=== PATIENT | female | born 1955 | race Caucasian/White ===

== ENCOUNTER 2024-07-11 00:34 | Emergency (ER) | payer MEDICARE, MEDICAID ==
[~2024-07-11] VITALS: Ht 157.5 cm; Wt 63.0 kg
[2024-07-11 00:41] VITALS: TEMP 98.2
[2024-07-11] MEDS: LIDOCAINE VISC 2% SOLN 15 ML UDC PO ONE (00:51)
[2024-07-11] MEDS: METOCLOPRAMIDE HCL 10 MG/2ML VIAL IV ONE (00:51)
[2024-07-11] MEDS: KETOROLAC TROMETHAMINE 30 MG/ML VIAL IV STA (00:52)
[2024-07-11] MEDS: DIPHENHYDRAMINE HCL 25 MG CAP PO ONE (00:52)
[2024-07-11] MEDS: SODIUM CHLORIDE 0.9% 1000ML 1,000 ML IV SCH (00:52)
[2024-07-11] MEDS ORDERED: ONDANSETRON HCL INJ 2MG/ML 2ML 2 MG/ML VIAL ONE (00:56)
[2024-07-11] MEDS: ONDANSETRON HCL INJ 2MG/ML 2ML 2 MG/ML VIAL IV STA (00:58)
[2024-07-11 01:34] LABS: BASOPHILS # (AUTO) 0.1 (0.0-0.1); BASOPHILS % 0.7 % (0.0-1.0); EOSINOPHILS # (AUTO) 0.2 (0.0-0.4); EOSINOPHILS % 1.9 % (0.0-6.0); HEMATOCRIT 39.5 % (34.2-44.1); HEMOGLOBIN 12.4 g/dL (12.0-16.0); MEAN CORPUSCULAR HEMOGLOBIN 29.9 pg (28-32); MEAN CORPUSCULAR HGB CONC 31.4 g/dL (31-35); MEAN CORPUSCULAR VOLUME 95.2 fL (81-99); MONOCYTES # (AUTO) 0.9 (0.2-0.8); MONOCYTES % 9.3 % (4.4-11.3); NEUTROPHILS # (AUTO) 5.8 (2.1-6.9); NEUTROPHILS % 57.7 % (38.7-80.0); PLATELET COUNT 225 x10e3/uL (140-360); RED BLOOD COUNT 4.15 x10e6/uL (3.6-5.1); RED CELL DISTRIBUTION WIDTH 13.7 % (11.7-14.4); WHITE BLOOD COUNT 10.05 x10e3/uL (4.8-10.8)
[2024-07-11 01:48] LABS: INR 0.87; PROTHROMBIN TIME 12.4 seconds (11.9-14.5)
[2024-07-11] MEDS: ETOMIDATE 2 MG/ML 10 ML INJ IV STA (01:49)
[2024-07-11 01:50] VITALS: PULSE 70; RESP 18; O2SAT 100
[2024-07-11] MEDS: SUCCINYLCHOLINE 200 MG/10 ML SYR IV STA (01:50)
[2024-07-11 01:57] LABS: ALBUMIN 3.8 g/dL (3.5-5.0); ALBUMIN/GLOBULIN RATIO 1.4 (0.8-2.0); ANION GAP 15.2 mmol/L (8-16); BILIRUBIN,TOTAL 0.4 mg/dL (0.2-1.2); CALCIUM 9.5 mg/dL (8.4-10.2); CREATININE, SERUM 0.76 mg/dL (0.57-1.11); TOTAL PROTEIN 6.5 g/dL (6.5-8.1)
[2024-07-11] MEDS ORDERED: FENTANYL 2000MCG/NS 250 250 ML IV PRN (02:00)
[2024-07-11 02:01] LABS: POTASSIUM 3.2 mmol/L (3.5-5.1)
[2024-07-11] MEDS ORDERED: FENTANYL CITRATE/PF 100MCG/2 ML INJ ONE (02:01)
[2024-07-11] MEDS ORDERED: MIDAZOLAM HCL 2 MG/2 ML VIAL ONE (02:02)
[2024-07-11 02:04] VITALS: PULSE 77; RESP 25
[2024-07-11] MEDS: FENTANYL CITRATE/PF 100MCG/2 ML INJ IV STA (02:15)
[2024-07-11] MEDS: MIDAZOLAM HCL 5MG/ML 2ML VIAL IV ONE (02:16)
[2024-07-11 02:46] VITALS: BP 116/74; O2SAT 100
== END 2024-07-11 02:22 | disposition other institution (70) ==
LOC: ER 00:38
DX: R51.9 Headache, unspecified (principal); I62.9 Nontraumatic intracranial hemorrhage, unspecified; I10 Essential (primary) hypertension; E78.5 Hyperlipidemia, unspecified; Z95.5 Presence of coronary angioplasty implant and graft
CPT/HCPCS: 31500; 36415; 70450; 71045; 80053; 84484; 85025; 85610; 93005; 94002; 94799; 99284; J1885; J2250 ×2; J2405; J2765; J3010; J7030